=== PATIENT | male | born 1940 ===

== ENCOUNTER 2024-05-03 22:27 | Inpatient (IN) | payer MEDICARE, OTHER, SELFPAY ==
[2024-05-03] VITALS (27 sets, daily range): BP systolic 50–156; BP diastolic 24–123; BMI 31.7; BMI 30.4
--- NOTE | 2024-05-03 18:45 | ED.GENMED ---
History of Present Illness
<Simon Mendosa DO - Last Filed: 05/03/24 21:25>
General
Chief Complaint: Abdominal Pain
Time Seen by Provider: 05/03/24 18:23
<ORESTES Serrano - Last Filed: 05/03/24 23:08>
History of Present Illness
History of Present Illness:
Patient is an 83 year old male with a PMH of CHF and bowel obstruction presenting to the ED with severe abdominal pain. He was short of breath and placed on a nonrebreather.
Review of Systems
<ORESTES Serrano - Last Filed: 05/03/24 23:08>
Review of Systems
Respiratory: Reports trouble breathing
ABD/GI: Reports abdominal pain
Phy Exam
<ORESTES Serrano - Last Filed: 05/03/24 23:08>
Physical Exam
Physical Exam:
see ed note
Course
<Simon Mendosa DO - Last Filed: 05/03/24 21:25>
Orders/Labs/Results
Orders:
Orders
05/03/24 Breakfast
NPO
Allow oral meds: No
Allow clear liquids: No
05/03/24 09:20
Complete Blood Count/With Diff Routine
05/03/24 18:24
Cardiac Monitoring- Treatment ONCE
Urinalysis Reflex To Culture Urgent
05/03/24 18:25
Electrocardiogram (*1) Stat
Reason for Study: Abdominal Pain
CT Abd/pel Without Iv Or Oral Urgent
Reason For Exam: Abdominal pain with distention
EKG- Treatment ONCE
05/03/24 18:32
Complete Blood Count/With Diff Urgent
Comprehensive Metabolic Panel Urgent
Lactic Acid Q4H
Comment: CANCEL 2nd LACTIC ACID IF 1st LACTIC ACID IS LESS THAN 2
Lipase Urgent
PTT Urgent
Prothrombin Time Urgent
Troponin I Urgent
Blood Culture Urgent
LINDSAY Source: Blood/Venous
Specimen Description:
05/03/24 18:56
CR Abdomen - 1 View Urgent
Comment:
Reason For Exam: abd distention
05/03/24 20:53
Blood Culture Urgent
LINDSAY Source: Blood/Venous
Specimen Description:
05/03/24 21:38
Admit/Transfer Patient As Directed
Co-Sign Provider:
Level of Care: Inpatient admission
Assign to:: ICU
Physician / Group: Hema
Diagnosis: SBO, Lactic Acidosis
Reason for Hospitalization: SBO, Lactic Acidosis
Expected length of stay greater than two midnights?: Yes
ELOS- Estimated Length of Stay in days: 4
I certify the patient meets the requirements for IP care: Yes
PRN Pain Medication Management As Directed
May give lesser potent ordered pain med per pt: Yes
preference::
Protocol:: Medication orders for pain may be administered in a
manner that supports deferring to patient preference
when the pt is:
- Requesting an ordered lesser potent pain medication.
Least to most potent pain medications are defined
as: acetaminophen < NSAID < tramadol < opioids
(morphine, oxycodone, hydromorphone).
- Requesting a lesser dose of the same medication IF
ORDERED.
- Requesting a less intrusive route of administration
if both routes are prescribed by the provider (PO <
IV).
05/03/24 21:39
Code Status As Directed
Resuscitation Status: Full Code
05/03/24 21:46
0.9% Sodium Chloride 1000 ml [Nss] 1,000 ml IV BOLUS
05/03/24 22:52
Lactic Acid Q6H
Troponin I Q6H
0.9% Sodium Chloride 1000 ml [Nss] 1,000 ml IV 125 mls/hr
HYDROmorphone [Dilaudid] 0.5 mg IV Q4HPRN PRN
Ondansetron Injectable [Zofran] 4 mg IV Q6HPRN PRN
05/03/24 22:52
SURGICAL CONSULT Routine
Consulting Provider: Clement Lopez
Was physician already notified: Yes
Reason for consult: SBO
Activity As Directed
Activity Level: Bedrest
EKG with chest pain [ECG as needed] As Directed
ECG as needed for:: Chest Pain
Gastrointestinal Tubes As Directed
Type: [place] sump
To suction?: Yes
Type of suction: Low intermittent
Irrigate tube?: Yes
Irrigant: Tap Water
Frequency: Q4H
Amount in mls: 30
Irrigation Directions: Irrigate Q4H and PRN
I/O [Intake/ Output] As Directed
Frequency: Per unit guidelines
Pneumatic Compression Sleeves As Directed
Type: Knee high
Vital Signs As Directed
Frequency: Per unit guidelines
Oxygen Therapy [O2 Therapy] [RESP] Routine
Titrate/Wean O2 to maintain O2 sat greater than (%): 94
DX Deep Vein Thrombosis Video Routine
05/03/24 23:30
Lactic Acid Q4H
Comment: CANCEL 2nd LACTIC ACID IF 1st LACTIC ACID IS LESS THAN 2
05/04/24 00:00
Metoprolol [Lopressor] 2.5 mg IV Q6
05/04/24 04:52
Lactic Acid Q6H
Troponin I Q6H
05/04/24 06:00
Basic Metabolic Panel IN AM
Complete Blood Count/No Diff IN AM
Magnesium IN AM
Phosphorus IN AM
05/04/24 08:00
Pantoprazole [Protonix IV] 40 mg IV DAILY
05/04/24 10:52
Lactic Acid Q6H
Troponin I Q6H
Abnormal Lab Results
05/03/24 05/03/24
09:20 18:32
WBC 13.2 H 10^3/uL 13.1 H 10^3/uL
(4.8-10.8) (4.8-10.8)
RDW 15.5 H % 15.5 H %
(11.5-14.5) (11.5-14.5)
Abs Immat Gran (auto) 0.2 H 10^3/uL 0.3 H 10^3/uL
(0-0.05) (0-0.05)
Absolute Neuts (auto) 9.9 H 10^3/uL 9.4 H 10^3/uL
(1.4-6.5) (1.4-6.5)
Absolute Lymphs (auto) 0.9 L 10^3/uL
(1.2-3.4)
Absolute Monos (auto) 2.1 H 10^3/uL 1.7 H 10^3/uL
(0.1-0.6) (0.1-0.6)
Immature Gran % 1.4 H % 2.2 H %
(0-0.5) (0-0.5)
Lymphocytes % 6.8 L % 12.4 L %
(20.5-51.1) (20.5-51.1)
Monocytes % 16.2 H % 13.1 H %
(1.7-9.3) (1.7-9.3)
PT 23.5 H Sec
(11.4-14.6)
APTT 42.4 H Sec
(23.4-35.0)
Sodium 133 L mmol/L
(135-145)
Potassium 5.5 H mmol/L
(3.5-5.1)
Carbon Dioxide 11 L* mmol/L
(22-30)
BUN 94 H mg/dl
(9-20)
Creatinine 2.6 H mg/dL
(0.7-1.3)
Glucose 118 H mg/dl
(70-99)
Lactic Acid 4.5 H* mmol/L
(0.7-2.0)
Total Bilirubin 1.8 H mg/dl
(0.2-1.3)
Troponin I 0.100 H* ng/ml
05/03/24 18:32
05/03/24 18:32
Vital Signs
Initial and Last Documented VS:
Initial Vital Signs
Pulse Ox
95
05/03/24 18:20
Last Documented Vital Signs
Temp Pulse Resp BP Pulse Ox
98.0 F 137 39 65/34 92
05/03/24 18:22 05/03/24 23:00 05/03/24 23:00 05/03/24 23:00 05/03/24 23:00
<ORESTES Serrano - Last Filed: 05/03/24 23:08>
Orders/Labs/Results
Orders:
Orders
05/03/24 Breakfast
NPO
Allow oral meds: No
Allow clear liquids: No
05/03/24 09:20
Complete Blood Count/With Diff Routine
05/03/24 18:24
Cardiac Monitoring- Treatment ONCE
Urinalysis Reflex To Culture Urgent
05/03/24 18:25
Electrocardiogram (*1) Stat
Reason for Study: Abdominal Pain
CT Abd/pel Without Iv Or Oral Urgent
Reason For Exam: Abdominal pain with distention
EKG- Treatment ONCE
05/03/24 18:32
Complete Blood Count/With Diff Urgent
Comprehensive Metabolic Panel Urgent
Lactic Acid Q4H
Comment: CANCEL 2nd LACTIC ACID IF 1st LACTIC ACID IS LESS THAN 2
Lipase Urgent
PTT Urgent
Prothrombin Time Urgent
Troponin I Urgent
Blood Culture Urgent
LINDSAY Source: Blood/Venous
Specimen Description:
05/03/24 18:56
CR Abdomen - 1 View Urgent
Comment:
Reason For Exam: abd distention
05/03/24 20:53
Blood Culture Urgent
LINDSAY Source: Blood/Venous
Specimen Description:
05/03/24 21:38
Admit/Transfer Patient As Directed
Co-Sign Provider:
Level of Care: Inpatient admission
Assign to:: ICU
Physician / Group: Hema
Diagnosis: SBO, Lactic Acidosis
Reason for Hospitalization: SBO, Lactic Acidosis
Expected length of stay greater than two midnights?: Yes
ELOS- Estimated Length of Stay in days: 4
I certify the patient meets the requirements for IP care: Yes
PRN Pain Medication Management As Directed
May give lesser potent ordered pain med per pt: Yes
preference::
Protocol:: Medication orders for pain may be administered in a
manner that supports deferring to patient preference
when the pt is:
- Requesting an ordered lesser potent pain medication.
Least to most potent pain medications are defined
as: acetaminophen < NSAID < tramadol < opioids
(morphine, oxycodone, hydromorphone).
- Requesting a lesser dose of the same medication IF
ORDERED.
- Requesting a less intrusive route of administration
if both routes are prescribed by the provider (PO <
IV).
05/03/24 21:39
Code Status As Directed
Resuscitation Status: Full Code
05/03/24 21:46
0.9% Sodium Chloride 1000 ml [Nss] 1,000 ml IV BOLUS
10/05/24 22:52
Lactic Acid Q6H
Troponin I Q6H
0.9% Sodium Chloride 1000 ml [Nss] 1,000 ml IV 125 mls/hr
HYDROmorphone [Dilaudid] 0.5 mg IV Q4HPRN PRN
Ondansetron Injectable [Zofran] 4 mg IV Q6HPRN PRN
05/03/24 22:52
SURGICAL CONSULT Routine
Consulting Provider: Clement Lopez
Was physician already notified: Yes
Reason for consult: SBO
Activity As Directed
Activity Level: Bedrest
EKG with chest pain [ECG as needed] As Directed
ECG as needed for:: Chest Pain
Gastrointestinal Tubes As Directed
Type: [place] sump
To suction?: Yes
Type of suction: Low intermittent
Irrigate tube?: Yes
Irrigant: Tap Water
Frequency: Q4H
Amount in mls: 30
Irrigation Directions: Irrigate Q4H and PRN
I/O [Intake/ Output] As Directed
Frequency: Per unit guidelines
Pneumatic Compression Sleeves As Directed
Type: Knee high
Vital Signs As Directed
Frequency: Per unit guidelines
Oxygen Therapy [O2 Therapy] [RESP] Routine
Titrate/Wean O2 to maintain O2 sat greater than (%): 94
DX Deep Vein Thrombosis Video Routine
05/03/24 23:30
Lactic Acid Q4H
Comment: CANCEL 2nd LACTIC ACID IF 1st LACTIC ACID IS LESS THAN 2
05/04/24 00:00
Metoprolol [Lopressor] 2.5 mg IV Q6
05/04/24 04:52
Lactic Acid Q6H
Troponin I Q6H
05/04/24 06:00
Basic Metabolic Panel IN AM
Complete Blood Count/No Diff IN AM
Magnesium IN AM
Phosphorus IN AM
05/04/24 08:00
Pantoprazole [Protonix IV] 40 mg IV DAILY
05/04/24 10:52
Lactic Acid Q6H
Troponin I Q6H
Abnormal Lab Results
05/03/24 05/03/24
09:20 18:32
WBC 13.2 H 10^3/uL 13.1 H 10^3/uL
(4.8-10.8) (4.8-10.8)
RDW 15.5 H % 15.5 H %
(11.5-14.5) (11.5-14.5)
Abs Immat Gran (auto) 0.2 H 10^3/uL 0.3 H 10^3/uL
(0-0.05) (0-0.05)
Absolute Neuts (auto) 9.9 H 10^3/uL 9.4 H 10^3/uL
(1.4-6.5) (1.4-6.5)
Absolute Lymphs (auto) 0.9 L 10^3/uL
(1.2-3.4)
Absolute Monos (auto) 2.1 H 10^3/uL 1.7 H 10^3/uL
(0.1-0.6) (0.1-0.6)
Immature Gran % 1.4 H % 2.2 H %
(0-0.5) (0-0.5)
Lymphocytes % 6.8 L % 12.4 L %
(20.5-51.1) (20.5-51.1)
Monocytes % 16.2 H % 13.1 H %
(1.7-9.3) (1.7-9.3)
PT 23.5 H Sec
(11.4-14.6)
APTT 42.4 H Sec
(23.4-35.0)
Sodium 133 L mmol/L
(135-145)
Potassium 5.5 H mmol/L
(3.5-5.1)
Carbon Dioxide 11 L* mmol/L
(22-30)
BUN 94 H mg/dl
(9-20)
Creatinine 2.6 H mg/dL
(0.7-1.3)
Glucose 118 H mg/dl
(70-99)
Lactic Acid 4.5 H* mmol/L
(0.7-2.0)
Total Bilirubin 1.8 H mg/dl
(0.2-1.3)
Troponin I 0.100 H* ng/ml
05/03/24 18:32
05/03/24 18:32
Vital Signs
Initial and Last Documented VS:
Initial Vital Signs
Pulse Ox
95
05/03/24 18:20
Last Documented Vital Signs
Temp Pulse Resp BP Pulse Ox
98.0 F 137 39 65/34 92
05/03/24 18:22 05/03/24 23:00 05/03/24 23:00 05/03/24 23:00 05/03/24 23:00
<DO Devon Jones Last Filed: 05/03/24 21:25>
*Critical Care Note
Total Time (30-74mins, 75-104mins- exclusive of procedures): 60 (Critical care statement: A total of 60 minutes of critical care time was provided for this patient. This time is separate from time utilized to perform the aforementioned documented
procedures. Aggregate critical care time includes only time during which I was engaged in work directl)
Data Reviewed
Review of Other/Old Records Reveals: Labs, Records, Radiology Studies, Testing and Discharge Summary
Source: patient and family
<DO Devon Jones Last Filed: 05/03/24 21:25>
Patient Management
Social determinants of health affecting care: Living situation and Strong social support
Discussion with other providers: Hospitalist and Tree Trimmer (Dr Lopez)
<Simon Mendsoa, DO - Last Filed: 05/03/24 21:25>
Update Note
Update Note:
05/03/20241944 PM attempted to call the number of the primary contact [phone]. No answer. No answering machine. There is no name on this contact.
Will attempt to call Wellington Sanchez to get a contact number of next of kin.
Christiano Sanchez Gave us daughters contact info:
Moriah [phone]- Message Left
Erin [id number] will attempt to determine patient's advanced directive and get back to us. She will talk to patient's who is also a resident at [facility]
05/03/20242023 PM: Spoke with Moriah who is one of his power's of commercial litigation attorney. As of right now he is CPR only. Patient does not want intubation. She will contact the other power of commercial litigation attorney and determine the extent of his advance directive and get
back to us.
05/03/20242024 PM: Contacted general surgery. He is actively in the operating room and will see the patient as soon as he is clear.
ED Attending Note
<Simon Mendosa, DO - Last Filed: 05/03/24 21:25>
ED Attending Note
Patient seen and examined by attending physician: Yes
I performed the substantive portion of visit, reviewed & personally made and approve the management plan that is documented in note by myself or BIRD.: Yes
ED Attending Note:
83-year-old male brought in by EMS for abdominal distention. Patient states that he has had abdominal pain since yesterday but today became very severe. Patient developed some shortness of breath with rhonchi and tachycardia. He does have a
history of congestive heart failure.He does have a history of abdominal hernia. History is limited secondary to patient's condition. We are attempting to contact Wellington Sanchez
Vital signs are stable. Patient not hypoxic
Nursing note reviewed. I agree with nursing documentation up to this point in time.
Home Meds and allergies reviewed.
NUMBER AND COMPLEXITY OF PROBLEMS ADDRESSED AT THE ENCOUNTER
� Chronic conditions affecting care: CHF
� Acute Exacerbation and/or Progression of Chronic Illness: Abdominal hernia. hernia
� Differential Diagnosis includes:
AMOUNT AND/OR COMPLEXITY OF DATA TO BE REVIEWED AND ANALYZED
I performed an independent evaluation of the following and my interpretation is:
EKG:
Pulse Ox: Not Hypoxic
Dietary Cook: Sinus Rhythm
CT:
X-rays:
Ultrasound:
Laboratory Studies:
Other:
Review of other/old records:
Clinical information was obtained by an independent historian:
Prescriptions/Medications Considered but not given:
Further testing considered but not performed:
RISK OF COMPLICATIONS AND/OR MORBIDITY OR MORTALITY OF PATIENT MANAGEMENT
Social determinants of health affecting care: Good Social Support
Discussion with other providers:
Escalation of care including admission/observation vs risk of discharge considered: After being observed in the emergency department, patient is stable for discharge.
CRITICAL CARE NOTE:
Total Time (exclusive of procedures):
Update:
<ORESTES Serrano - Last Filed: 05/03/24 23:08>
-
Portions of this chart may have been created with voice recognition software.� Occasional wrong word or��sound alike� substitutions may have occurred due to the inherent limitations of voice recognition software.
Discharge Plan
Departure
Patient Disposition: Admit
Date of Disposition: 05/03/24
Time of Disposition: 21:24
Admit to: ICU
Presentation/result/management discussed w/ accepting MD/DO: Hospitalist
Condition: Critical
Discharge Problem:
SBO (small bowel obstruction), Sepsis, Atrial fibrillation, Dementia
Interventions
Interventions:
*Risk Screen - Suicide Last Done: 05/03/24 18:30
*General Assessment Last Done: 05/03/24 18:30
*Neglect/Abuse Screening Last Done: 05/03/24 18:30
*ED COVID-19 Vaccine History Last Done: 05/03/24 18:30
*Nursing Disposition Last Done: 05/03/24 22:25
[facility] Assessment Last Done: 05/03/24 18:30
Discharge Date and Time
Discharge Date/Time: 05/03/24 22:25
[2024-05-03 18:52] LABS: INR 2.11; PT 23.5 Sec (11.4-14.6)
[2024-05-03 18:53] LABS: APTT 42.4 Sec (23.4-35.0)
[2024-05-03 18:54] LABS: Lactic Acid 4.5 mmol/L (0.7-2.0)
[2024-05-03 18:59] LABS: % Basophils 0.6 % (0-2); % Eosinophils 0.1 % (0-6); % Immature Granulocytes 2.2 % (0-0.5); % Lymphocytes 12.4 % (20.5-51.1); % Monocytes 13.1 % (1.7-9.3); % Neutrophils 71.6 % (42.2-75.2); Absolute Basophils 0.1 10^3/uL (0-0.2); Absolute Immature Granulocytes 0.3 10^3/uL (0-0.05); Absolute Lymphocytes 1.6 10^3/uL (1.2-3.4); Absolute Monocytes 1.7 10^3/uL (0.1-0.6); Absolute Neutrophils 9.4 10^3/uL (1.4-6.5); Hematocrit 45.1 % (39.0-52.0); Hemoglobin 15.2 g/dL (13.0-18.0); Mean Corp Hgb Conc. 33.7 g/dL (33.0-37.0); Mean Corpuscular Hgb 30.2 pg (27.0-31.0); Mean Corpuscular Volume 89.7 fL (80.0-94.0); Mean Platelet Volume 9.5 fL (7.4-10.4); Nucleated Red Blood Cells % 0 % (-); Platelet Count 280 10^3/uL (130-400); Red Blood Cell Count 5.03 10^6/uL (4.70-6.10); Red Cell Dist. Width 15.5 % (11.5-14.5); White Blood Cell Count 13.1 10^3/uL (4.8-10.8)
[2024-05-03 19:09] LABS: ALT (SGPT) 18 U/L (0-50); AST (SGOT) 22 U/L (17-59); Albumin 3.9 g/dl (3.5-5.0); Alkaline Phosphatase 110 U/L (38-126); Blood Urea Nitrogen 94 mg/dl (9-20); Calcium 9.5 mg/dl (8.4-10.2); Carbon Dioxide 11 mmol/L (22-30); Chloride 99 mmol/L (98-107); Glucose 118 mg/dl (70-99); Lipase 30 U/L (23-300); Potassium 5.5 mmol/L (3.5-5.1); Sodium 133 mmol/L (135-145); Total Bilirubin 1.8 mg/dl (0.2-1.3); Total Protein 7.1 g/dl (6.3-8.2)
[2024-05-03 19:19] LABS: % Basophils 0.5 % (0-2); % Eosinophils 0.1 % (0-6); % Immature Granulocytes 1.4 % (0-0.5); % Lymphocytes 6.8 % (20.5-51.1); % Monocytes 16.2 % (1.7-9.3); Absolute Basophils 0.1 10^3/uL (0-0.2); Absolute Immature Granulocytes 0.2 10^3/uL (0-0.05); Absolute Lymphocytes 0.9 10^3/uL (1.2-3.4); Absolute Monocytes 2.1 10^3/uL (0.1-0.6); Absolute Neutrophils 9.9 10^3/uL (1.4-6.5); Hematocrit 43.7 % (39.0-52.0); Mean Corp Hgb Conc. 34.3 g/dL (33.0-37.0); Mean Corpuscular Hgb 30.5 pg (27.0-31.0); Mean Corpuscular Volume 88.8 fL (80.0-94.0); Mean Platelet Volume 10.2 fL (7.4-10.4); Nucleated Red Blood Cells % 0 % (-); Platelet Count 265 10^3/uL (130-400); Red Blood Cell Count 4.92 10^6/uL (4.70-6.10); Red Cell Dist. Width 15.5 % (11.5-14.5); White Blood Cell Count 13.2 10^3/uL (4.8-10.8)
[2024-05-03 19:26] LABS: eGFR 23.43
--- NOTE | 2024-05-03 21:48 | HPS.HSE ---
Family Physician
-
Family Physician: Jose Gannon DO
Chief Complaint
-
Abd Pain, N/V
History of Present Illness
Patient is an 83y M with PMH significant for A-Fib, senile dementia and GBS who presents to ED complaining of abdominal pain and N/V. History obtained from patient, NH record and discussion with daughter via phone. Patient was noted to have N/V
x 2 episodes a few days ago. He was then tolerating liquid diet until today when he complained of mid-abdominal pain, had additional N/V and was noted to have a 'bulge' in the lower abdomen. Patient was sent to the ED for further evaluation and
treatment.
In the ED, patient was in acute distress with abdominal pain and distention. NGT was placed and has drained about 3 liters thus far of dark material.
Patient complains of lower abdominal pain, but notes that he feels much improved from initial arrival.
Medical History
Past Medical History
Past Medical History: Reports Other
Additional Past Medical History:
Atrial Fibrillation - Unknown Type
'CHF' - Unspecified
History of RLE DVT
Guillain-Allison Syndrome
SAMPSON
Dementia with Behavioral Disturbance
CKD III
History of Renal Cell Carcinoma
Past Surgical History: Reports Other
Additional Past Surgical History:
Left Nephrectomy
Small Bowel Obstruction / ExLap / Hernia Repair (about 30 years ago)
Social History
Tobacco: Former Smoker
Alcohol: None
Drug: None
Living: Snf
Family History
Family History: Not pertinent
Allergies / Home Medications
Allergies reflects when Allergies were last updated in [employer].
Home Medications with original date entered in [employer]
Allergy/Medication List:
Allergies
Allergy/AdvReac Type Severity Reaction Status Date / Time
propoxyphene [From Darvon] Allergy Severe Unknown Verified 05/03/24 19:33
vancomycin Allergy Severe Anaphylaxis Verified 05/03/24 19:33
Penicillins Allergy Unknown Unknown Verified 05/03/24 19:33
Home Medications
acetaminophen 325 mg tablet 650 mg PO Q4H PRN Mild pain / fever > 100.4 05/03/24
apixaban 5 mg tablet 5 mg PO BID 05/03/24
bisacodyl 10 mg rectal suppository 10 mg NJ DAILY PRN constipation 05/03/24
cholecalciferol (vitamin D3) 1,250 mcg (50,000 unit) tablet 1,250 mcg PO QMONTH 05/03/24
famotidine 20 mg tablet 20 mg PO DAILY 05/03/24
ipratropium 0.5 mg-albuterol 3 mg (2.5 mg base)/3 mL nebulization soln 3 ml inhalation Q6H PRN SOB 05/03/24
magnesium hydroxide 400 mg/5 mL oral suspension 30 ml PO HS PRN Constipation 05/03/24
metoprolol succinate 25 mg tablet,extended release 24 hr 12.5 mg PO DAILY 05/03/24
potassium chloride 10 mEq oral packet 20 meq PO DAILY 05/03/24
Review of Systems
-
History Source: Patient
A 12 point ROS was completed and negative except as noted: Yes
Constitutional: Denies Fever or Chills
Cardiac: Denies Chest Pain or Palpitations
Abdomen/GI: Reports Abdominal Pain, Nausea and Vomiting
Neurological: Denies Dizzy or Headache
Psych: Reports Dementia
Physical Exam
Vital Signs
Vital Signs
Temp Pulse Resp BP Pulse Ox
98.0 F 129 39 79/67 96
05/03/24 18:22 05/03/24 21:16 05/03/24 21:16 05/03/24 21:16 05/03/24 21:16
Physical Exam
General: Other (83y M in moderate distress due to abdominal pain and nausea.)
HEENT: Other (Dry MM. NGT in place draining dark liquid.)
Respiratory: Other (Decreased at bases - otherwise clear.)
Cardiac: S1/S2, Irregular Rhythm and Tachycardia; No Murmur
GI: Other (Abdomen is distended with pos BS. Tenderness / hernia appreciated superior to umbilicus, at prior incision site.)
Musculoskeletal: No Clubbing, No Cyanosis and No Edema
Neuro: Awake and Alert; No Oriented
Laboratory Results
-
05/03/24 18:32
05/03/24 18:32
Laboratory Results
PT 23.5 Sec (11.4-14.6) H 05/03/24:
INR 2.11 05/03/24:
APTT 42.4 Sec (23.4-35.0) H 05/03/24 18:32
Lactic Acid 4.5 mmol/L (0.7-2.0) H* 05/03/24:
Total Bilirubin 1.8 mg/dl (0.2-1.3) H 05/03/24 18:32
AST 22 U/L (17-59) 05/03/24 18:32
ALT 18 U/L (0-50) 05/03/24 18:32
Alkaline Phosphatase 110 U/L (38-126) 05/03/24 18:32
Troponin I 0.100 ng/ml H* 05/03/24 18:32
Lipase 30 U/L (23-300) 05/03/24 18:32
Impression/Plan
-
A/P: Patient is an 83y M with PMH significant for A-Fib, dementia and prior SBO / hernia repair who presents to ED for evaluation of N/V and abdominal pain.
SBO
Ventral / Incisional Hernia
- Admit for further evaluation and treatment.
- NGT placed in the ED with decompression and significant improvement per patient.
- Continue NG drainage and quantify output.
- Supportive care including IVFs, pain control, etc.
- Surgery evaluation appreciated - ? eventual OR for hernia repair / alleviation of obstruction after family discussions, etc.
- Follow for any new / worsening symptoms, increased pain, etc.
Lactic Acidosis
Hyperkalemia
KIMBERLY on CKD
- Patient with significant volume depletion based on physical exam, labs, etc.
- Aggressive IVF resuscitation and follow for improvement in labs / lytes / lactate.
- ? elevated lactate due to ischemic of involved bowel - but no characteristic findings of this seen on imaging.
- SCr = 2.6 with prior baseline around 1.0.
- Follow for improvement with volume replacement.
Atrial Fibrillation - Unknown Type
- A-Fib with rapid rates in the ED.
- Monitor for improvement in rates with volume replacement and pain control.
- IV Lopressor with holding parameters to control rates.
- Monitor on telemetry.
- Hold Eliquis given potential need for intervention / surgery.
History of CHF
- Listed diagnosis on patient record; however, he is on no maintenance diuretics, etc.
- Clearly not volume overloaded at present.
- Monitor I/Os, daily weights, etc.
- Monitor for any development of dyspnea, hypoxemia, etc.
Senile Dementia
- Occasional behaviors / agitation according to family.
- Not on any mood stabilizing medications chronically.
- Monitor for any changes / try non-pharmacologic interventions as able for any agitation.
DVT Prophylaxis: SCDs
Code Status: Full
Long discussion with daughter via phone re: code status, patient wishes, etc.
Initially stated 'CPR' but 'no intubation'. After review and explanation, daughter clarifies that patient would wish for initial resuscitation efforts - including intubation - but would not wish to remain on 'life support'.
That said, family having active discussions re: current clinical presentation, need for surgery, etc and may wish to transition to a comfort care approach if they decide to decline surgery.
Continue to follow-up / readdress changing goals of care.
[2024-05-03] MEDS: NSS 1000 IV ×4 (21:51→23:41)
--- NOTE | 2024-05-03 22:53 | W.PN.UPDATE ---
Update Note
Progress Note Update
The patient was seen and examined and reviewed the medical record and imaging studies.� Full consult to follow.
83-year-old [facility] with multiple medical problems including A-fib on anticoagulation, history Guillain-Pham� syndrome, history of DVT, CKD III, renal cancer status post left nephrectomy, and a history of a bowel
obstruction in the past who presents to the ED with nausea and vomiting for the past several days.� While in the ED he was hypotensive but afebrile and was noted to have a massively distended abdomen with tympany.� An NG tube was placed with
drainage of approximately 3 liters of feculent material.� At the present time his abdomen is much softer and he states he feels better.� After speaking with his daughter via telephone (Moriah, his power of civil rights attorney at [phone]), he underwent
some kind of operation approximately 30 years ago when he hospitalized with Guillain-Pham� syndrome and she believes there was some type of bowel obstruction.� He has a known ventral hernia and opted not to have it treated.
His white count is 13.1 his hemoglobin 15.2 g/dL.� His sodium is 133 with potassium 5.5.� His carbon dioxide is 11, BUN 94 and creatinine 2.6.� In June 2023 his creatinine was 1.� In the ED his lactate was 4.[address] scan of the abdomen and
pelvis without contrast is consistent with a small bowel obstruction with a transition point in the midline supraumbilical ventral abdominal wall hernia.� There is no pneumatosis and minimal fluid.� There are also gallstones and bilateral pleural
effusions.� On exam his abdomen is soft, slightly distended, has a midline incision with some erythema. �It is nontender and I am unable to reduce the hernia.
I discussed the case with his daughter and reviewed the treatment options.� Without surgery, his condition is unlikely to improve.� I explained that the surgery is high risk given his underlying medical conditions.� The operation would involve
general anesthesia with an incision over the previous hernia site, possible bowel resection.� The hernia will be repaired but mesh may not be used depending upon the findings.� She is on her way to the hospital to see her father and discussed goals
of care.� At the present time he still needs to be resuscitated before any surgery and if they like to proceed, I will order Kcentra.� The plan is to monitor him in the intensive care unit.
[2024-05-03] MEDS: NEO-SYNEPHRINE 250 IV (23:05)
[2024-05-03] MEDS: ZOFRAN 4 MG IV (23:11)
--- NOTE | 2024-05-03 23:43 | W.PN.UPDATE ---
Update Note
Progress Note Update
05/03/24
2335- Daughter Moriah at patient's bedside. Updated on current clinical situation and plan of care. Patient continuing to have large NGT output and now vomiting, concern for aspiration pneumonia. Patient is in rapid afib HR 160s, hypotensive now
initiated vasopressor sanchez gtt, tachypneic, lower extremities are mottled, and hypoxic with oxygen saturations 90% increased Nasal cannula to non rebreather. Moriah called her sister and openly discussed code status, family consensus he would not
want to be on a ventilator and surgical recovery would be difficult, family made decision to change code status to DNR/DNI. Code status was updated in the chart, 'yes' to vasopressors and would continue with current care. RN updated on code status
change and plan of care. Answered all questions.
[2024-05-03 23:48] LABS: Lactic Acid 3.1 mmol/L (0.7-2.0)
--- NOTE | 2024-05-03 23:51 | W.PN.SEPSIS ---
Sepsis
Vital Signs
Temp Pulse Resp BP Pulse Ox
100.1 F 138 35 106/65 92
05/03/24 23:34 05/03/24 23:15 05/03/24 23:15 05/03/24 23:15 05/03/24 23:15
Physical Exam
Physical Exam:
A focused exam was performed after fluid resuscitation.
Capillary Refill
Bilateral Upper Extremity:
Leonarda Time: Less than 3 sec
Bilateral Lower Extremity:
Leonarda Time: Greater than or equal to 3 sec
Pulse Evaluation
Bilateral Radial:
Pulse Evaluation: Present
Bilateral Dorsalis Pedis:
Pulse Evaluation: Present
[2024-05-03 23:55] LABS: Magnesium 2.2 mg/dl (1.6-2.3); Phosphorus 4.3 mg/dl (2.5-4.5)
[2024-05-04] VITALS (21 sets, daily range): BP systolic 78–147; BP diastolic 39–133; BMI 30.4
[2024-05-04 00:21] LABS: Troponin I 0.123 ng/ml
[2024-05-04 00:24] LABS: Blood Urea Nitrogen 96 mg/dl (9-20); Calcium 7.9 mg/dl (8.4-10.2); Carbon Dioxide 10 mmol/L (22-30); Chloride 106 mmol/L (98-107); Glucose 82 mg/dl (70-99); Potassium 5.6 mmol/L (3.5-5.1); Sodium 134 mmol/L (135-145)
[2024-05-04 00:32] LABS: Estimated Creatinine Clearance 31 ml/min; eGFR 27.15
[2024-05-04] MEDS: SODIUM BICARBONATE 50 MEQ IV ×3 (00:41→05:42)
[2024-05-04] MEDS: SODIUM BICARBONATE 1150 MEQ IV ×2 (01:04→08:49)
[2024-05-04] MEDS: NEO-SYNEPHRINE 250 IV ×2 (04:10→08:48)
[2024-05-04 04:27] LABS: Venous Blood Gas B.E. -10.9 mmol/L (-4 to +4); Venous Blood Gas HCO3 14.6 mmol/L (22-27); Venous Blood Gas O2 Sat % 95.3 %; Venous Blood Gas pCO2 31 mmHg (35-48); Venous Blood Gas pH 7.28 (7.32-7.43); Venous Blood Gas pO2 65 mmHg (30-50)
[2024-05-04 04:38] LABS: Hematocrit 35.3 % (39.0-52.0); Hemoglobin 12.3 g/dL (13.0-18.0); Mean Corp Hgb Conc. 34.8 g/dL (33.0-37.0); Mean Corpuscular Hgb 30.8 pg (27.0-31.0); Mean Corpuscular Volume 88.5 fL (80.0-94.0); Mean Platelet Volume 10.2 fL (7.4-10.4); Platelet Count 229 10^3/uL (130-400); Red Blood Cell Count 3.99 10^6/uL (4.70-6.10); Red Cell Dist. Width 15.6 % (11.5-14.5); White Blood Cell Count 15.9 10^3/uL (4.8-10.8)
--- NOTE | 2024-05-04 04:44 | PTCARENOTE ---
Late note due to pt care. Received pt from ED RN, transferred safely onto ICU bed. Alert and orientedx2. Hx dementia, poor historian. Rapid Afib 150 on the monitor, Hypotensive 60/40 sanchez gtt started, 2L NSS bolus given, followed by sodium bicarb
gtt. Hypooxic 80's, NRB applied, able to transition to 6L NC. Lower extremities cold and mottled, weak pedal pulses. NGT in left nare to LIS, 1.5L of brown bile/stool. Pt also had 2 large liquid incontinent BMs. Dual RN skin check, pt has MASD/dry
skin around penis, and perineum, also has sacral slit, barrier cream applied to all areas. Q2hour turns.
[2024-05-04 04:51] LABS: INR 2.95; PT 30.7 Sec (11.4-14.6)
[2024-05-04 04:52] LABS: APTT 41.3 Sec (23.4-35.0)
[2024-05-04 05:04] LABS: Lactic Acid 3.3 mmol/L (0.7-2.0)
[2024-05-04 05:14] LABS: Blood Urea Nitrogen 101 mg/dl (9-20); Calcium 7.6 mg/dl (8.4-10.2); Carbon Dioxide 12 mmol/L (22-30); Chloride 106 mmol/L (98-107); Glucose 70 mg/dl (70-99); Magnesium 2.1 mg/dl (1.6-2.3); Phosphorus 3.9 mg/dl (2.5-4.5); Sodium 137 mmol/L (135-145)
[2024-05-04 05:25] LABS: Estimated Creatinine Clearance 31 ml/min; Troponin I 0.111 ng/ml; eGFR 27.15
[2024-05-04 06:30] LABS: Troponin I 0.123 ng/ml
[2024-05-04] MEDS: DILAUDID 0.5 MG IV ×3 (07:30→13:04)
--- NOTE | 2024-05-04 07:31 | W.PN.HOSP.TC ---
Today's Communication/Plan
-
Continue supportive measures
Increase Dilaudid frequency
Assessment / Plan
Assessment / Plan
Gen-AAOx3, NAD
HEENT-NC, AT, anicteric, clear oral mm
Neck-supple
CV-reg, no M, +S1/S2
Lungs-clear B/L
Abd-soft, NT, ND
Ext-no edema
Musculoskeletal-no cyanosis, clubbing
Skin-warm and dry
Neuro-grossly non-focal
Psych-calm, cooperative
Sepsis (POA) -likely GI source given presentation with small bowel obstruction. Cultures pending. Chest x-ray without infiltrate, although apices are not visualized. Spoke with daughter at the bedside, I favor not starting antibiotics given his
poor prognosis. She agrees.
Shock -differential diagnosis includes hypovolemic, septic, etc. Vasopressor dependent. Remains hemodynamically unstable in the ICU. Continue Erick-Synephrine. IV fluid support.
SBO -significant NG tube output since admission. Continue NPO. Very high risk for surgery given multiple comorbidities, KIMBERLY, shock.
High anion gap metabolic acidosis -so far refractory to bicarbonate infusion. Prognosis remains poor. Bicarb 12 this morning. Lactic acidosis noted.
Hyponatremia -hypovolemic. Improved.
Hyperkalemia -improved.
KIMBERLY -suspect related to profound volume depletion, small bowel obstruction.
Rapid Atrial Fib -will be difficult to control heart rate given presentation with sepsis, shock, bowel obstruction, pain.
Troponin elevation -suspect type II DE related to shock, sepsis, tachycardia.
Dementia
DNR
Dispo -I favor comfort measures at this point in time given his very poor prognosis. He is not a surgical candidate, nor would he survive with or without surgery. Family agrees. Waiting for arrival of patient's and other family members.
Discussed with nursing. Will increase IV Dilaudid frequency with goal of comfort.
End-of-life care discussion constitutes high risk encounter.
Anticipated Discharge: 24 - 48 hours
Subjective/Interval History
-
Date of Service: May 04, 2024
Patient seen and examined. Complaining of abdominal discomfort, moaning.
Objective Data
-
Labs:
Laboratory Results
05/03/24 05/03/24 05/04/24
23:28 23:40 04:07
WBC 15.9 H
Hgb 12.3 L
Hct 35.3 L
Plt Count 229
PT 30.7 H
INR 2.95
APTT 41.3 H
Sodium 134 L Cancelled 137
Potassium 5.6 H Cancelled 5.0
Chloride 106 Cancelled 106
Carbon Dioxide 10 L* Cancelled 12 L*
BUN 96 H Cancelled 101 H*
Creatinine 2.3 H Cancelled 2.3 H
Glucose 82 Cancelled 70
Calcium 7.9 L D Cancelled 7.6 L
Vital Signs:
Vital Signs
Temp Pulse Resp BP Pulse Ox
101.6 F H 129 37 113/47 93
05/04/24 07:00 05/04/24 05:45 05/04/24 05:45 05/04/24 05:00 05/04/24 05:45
I&O
05/03/24 05/04/24 05/05/24
06:59 06:59 06:59
Intake Total 2145 / 2145
Output Total 1550 / 1550
Balance 595 / 595
Review of Systems
-
History Source: Patient
All other systems: Reviewed and negative
--- NOTE | 2024-05-04 07:36 | CON.INTV ---
Consultation
Consultation Request
Date/Time Consultation Requested: 05/04/24
Date/Time Consultation Performed: 05/04/24
Performing Provider: Jyoti
Reason for Consultation: ICU
Medical History
-
History of Present Illness:
Patient is an 83-year-old male with previous history of A-fib, dementia, GBS, CHF, SAMPSON, CKD with renal cell carcinoma, history of bowel obstruction, ventral hernia presenting to ER with complaints abdominal pain and nausea/vomiting. He was
notably having nausea and vomiting with severe distention of abdomen. In the ER, he was notably hypotensive, in acute distress with abdominal pain and distention. NG tube was placed and drained about 3 L of feculent material. CT demonstrating
small bowel obstruction with transition point at the ventral abdominal wall hernia site. Evaluated by colorectal with recommendation to undergo surgery. He is admitted to ICU for continued care. Patient is currently DNR, family discussion ongoing
regarding goals of care.
.
Past Medical History
Past Medical History: Other (see list below)
Social History
Tobacco: Non-smoker
Alcohol: None
Drug: None
Family History
Family History: Reviewed & Not Pertinent
Allergies / Home Medications
Allergies
Allergy/AdvReac Type Severity Reaction Status Date / Time
propoxyphene [From Darvon] Allergy Severe Unknown Verified 05/03/24 19:33
vancomycin Allergy Severe Anaphylaxis Verified 05/03/24 19:33
Penicillins Allergy Unknown Unknown Verified 05/03/24 19:33
Home Medications
�Medication �Instructions �Recorded �Confirmed �Last Taken �Type
acetaminophen 325 mg tablet 650 mg PO Q4H PRN Mild pain / 05/03/24 05/03/24 Unknown History
fever > 100.4
apixaban 5 mg tablet 5 mg PO BID 05/03/24 05/03/24 Unknown History
bisacodyl 10 mg rectal suppository 10 mg [place] DAILY PRN constipation 05/03/24 05/03/24 Unknown History
cholecalciferol (vitamin D3) 1,250 1,250 mcg PO QMONTH 05/03/24 05/03/24 Unknown History
mcg (50,000 unit) tablet
famotidine 20 mg tablet 20 mg PO DAILY 05/03/24 05/03/24 Unknown History
ipratropium 0.5 mg-albuterol 3 mg 3 ml inhalation Q6H PRN SOB 05/03/24 05/03/24 Unknown History
(2.5 mg base)/3 mL nebulization
soln
magnesium hydroxide 400 mg/5 mL 30 ml PO HS PRN Constipation 05/03/24 05/03/24 Unknown History
oral suspension
metoprolol succinate 25 mg 12.5 mg PO DAILY 05/03/24 05/03/24 Unknown History
tablet,extended release 24 hr
potassium chloride 10 mEq oral 20 meq PO DAILY 05/03/24 05/03/24 Unknown History
packet
Review of Systems
-
Unable to Obtain full review of systems at this time due to: Acuity
History Source: Family
Vitals / Labs / Diagnostic Testing
Vital Signs
Temp Pulse Resp BP Pulse Ox
101.6 F H 129 37 113/47 93
05/04/24 07:00 05/04/24 05:45 05/04/24 05:45 05/04/24 05:00 05/04/24 05:45
Lab Data
05/04/24 04:07
05/04/24 04:07
Laboratory Results
05/03/24 05/04/24
18:32 04:07
PT 23.5 H 30.7 H
INR 2.11 2.95
APTT 42.4 H 41.3 H
Diagnostic Testing:
Physical Exam
-
HEENT: Normocephalic, Anicteric, Moist Mucous Membranes and Other (NGT in place)
Cardiovascular: S1/S2 and Regular Rhythm
Respiratory: Clear and Non-Labored Respirations
GI: Soft and Distended
Neurology: Awake and Other (lethargic but arousable)
Skin: Warm and Dry
General: Pain and Poor Appetite
Assessment
-
Patient is an 83-year-old male with previous history of A-fib, dementia, GBS, CHF, SAMPSON, CKD with renal cell carcinoma, history of bowel obstruction, ventral hernia presenting to ER with complaints abdominal pain and nausea/vomiting. He was
notably having nausea and vomiting with severe distention of abdomen. In the ER, he was notably hypotensive, in acute distress with abdominal pain and distention. NG tube was placed and drained about 3 L of feculent material. CT demonstrating
small bowel obstruction with transition point at the ventral abdominal wall hernia site. Evaluated by colorectal with recommendation to undergo surgery. He is admitted to ICU for continued care.
Septic shock on pressors
Small bowel obstruction at site of ventral hernia status post NG tube with 3 L decompression of feculent material
Abdominal pain, nausea/vomiting
Fever
Leukocytosis
Anemia, likely due to acute illness and resuscitation
Severe metabolic acidosis
Acute kidney injury
Lactic acidosis
Hypocalcemia
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
Atrial Fibrillation
CHF
History of RLE DVT
Guillain-[place] Syndrome
SAMPSON
Dementia with Behavioral Disturbance
CKD III
History of Renal Cell Carcinoma
Left Nephrectomy
Small Bowel Obstruction / ExLap / Hernia Repair (about 30 years ago)
Former smoker
Plan
Dementia at baseline
Abd pain ongoing
Pain/sedation: dilaudid PRN
RASS goals: 0
Hemodynamically unstable, requiring pressors.
Requiring pressors:
Cardiac history reviewed--Afib, CHF
No prior ECHO for review, unknown EF
Hold home meds while hypotensive
Monitor on telemetry
Oxygen needs: stable on midflow as needed
Prior history of lung disease: none but was a former smoker, has SAMPSON likely not on PAP
Supplemental O2 as indicated to maintain sats > 89%
CXR/CT reviewed indicating clear lungs
Acute SBO
NPO, NGT in place
CRC evaluated patient, family has declined surgery
Aspiration precautions, HOB > 30 degrees
KIMBERLY present
History of RCC s/p nephrectomy
Void trials
Follow urine output, critical I/Os
Replete electrolytes as needed
Fever and increased WBC on presentation
Started on empiric antibiotics
Follow fever trend, WBC count
Lactate elevated on admission, likely from SBO
CBC reviewed, Hb drop likely dilutional but overall stable
DVT prophylaxis as assessed based on risk, including mechanical SCDs
Can transfuse if indicated for Hb <7, plt < 10
INR WNL
No prior h/o diabetes or thyroid disease
Monitor accuchecks PRN/SS coverage if needed
Family has decided patient is DNR and decline surgery. They are moving into comfort measures and are awaiting more family to come.
They will likely w/d care once they are all present.
Reviewed with CCRN. Orders are placed.
Diagnostic Data
Chest X-Ray: 05/03/24- The enteric tube extends into the stomach with the tip projecting over the region of the gastric antrum. The bilateral lung bases are clear. The lung apices are excluded from the [id number]. The cardiomediastinal silhouette
is normal.
CT Scan: AP 05/03/24- 1. Small bowel obstruction with transition point at the midline supraumbilical ventral abdominal wall hernia.
2. Cholelithiasis.
3. Small bilateral pleural effusions and prominent dependent bilateral lower lobe atelectasis. Cannot rule out superimposed pneumonia.
Echo:
PFT's:
Reports and relevant images were personally reviewed.
-----
Critical care time 75 mins -- this includes review of history, physical exam, medications, hemodynamic/ventilator parameters, laboratory data, imaging and discussion with house staff, pharmacy, respiratory therapy, assistant tennis professional, and nursing.
[2024-05-04] MEDS: PROTONIX IV 40 MG IV (07:57)
--- NOTE | 2024-05-04 08:30 | PTCARENOTE ---
recd pt handoff bedside, family present. assessment as documented. Seen by Jyoti Campbell, John. goals of care discussion with family, to proceed toward comfort care, pain med order adjusted as noted. will continue pressors and fluids for
now, no labs per MD and family. NG irrigated, very fecund odor, incont, also foul. abd tender, hypo/absent bowel sounds. attends changed, incont dark gurwinder. few ice chips for comfort. blankets removed for temp at this time. questions answered
as able, family expecting more to arrive throughout the day.
[2024-05-04] MEDS: DESENEX/MITRAZOL/ZEASORB 1 APPLIC TOPICAL (11:21)
--- NOTE | 2024-05-04 12:21 | CON.GS ---
Consultation
-
Date/Time Consultation Requested: 05/03/2024, 22:00
Date/Time Consultation Performed: 05/03/2024, 22:53
Requesting Provider: Constantino Garrido DO
Performing Provider: Ishmael Lopez MD
Reason for Consultation: incarcerated hernia
Medical History
-
Chief Complaint: abdominal pain
History of Present Illness:
83-year-old male resident of the [facility] with multiple medical problems including A-fib on anticoagulation, history Guillain-Pham� syndrome, history of DVT, CKD III, renal cancer status post left nephrectomy, and a history of a bowel
obstruction in the past who presents to the ED with nausea and vomiting for the past several days.� While in the ED he was hypotensive but afebrile and was noted to have a massively distended abdomen with tympany.� An NG tube was placed with
drainage of approximately 3 liters of feculent material.� At the present time his abdomen is much softer and he states he feels better.� After speaking with his daughter via telephone (Moriah, his power of privacy attorney at [phone]), he underwent
some kind of operation approximately 30 years ago when he hospitalized with Guillain-Pham� syndrome and she believes there was some type of bowel obstruction.� He has a known ventral hernia and opted not to have it treated.
His white count is 13.1 his hemoglobin 15.2 g/dL.� His sodium is 133 with potassium 5.5.� His carbon dioxide is 11, BUN 94 and creatinine 2.6.� In June 2023 his creatinine was 1.� In the ED his lactate was 4.[address] scan of the abdomen and
pelvis without contrast is consistent with a small bowel obstruction with a transition point in the midline supraumbilical ventral abdominal wall hernia.� There is no pneumatosis and minimal fluid.� There are also gallstones and bilateral pleural
effusions.�
Past Medical History
Past Medical History: Other (Atrial Fibrillation - Unknown Type 'CHF' , Unspecified History of RLE DVT, Guillain-[place] Syndrome, SAMPSON, Dementia with Behavioral Disturbance, CKD III, History of Renal Cell Carcinoma)
Past Surgical History: Other (Left Nephrectomy, Small Bowel Obstruction / ExLap / Hernia Repair (about 30 years ago))
Social History
Tobacco: Non-Smoker
Alcohol: None
Drug: None
Family History
Family History: Reviewed & Not Pertinent
Allergies / Home Medications
Allergy/AdvReac Type Severity Reaction Status Date / Time
propoxyphene [From Darvon] Allergy Severe Unknown Verified 05/03/24 19:33
vancomycin Allergy Severe Anaphylaxis Verified 05/03/24 19:33
Penicillins Allergy Unknown Unknown Verified 05/03/24 19:33
�Medication �Instructions �Recorded �Confirmed �Type
acetaminophen 325 mg tablet 650 mg PO Q4H PRN Mild pain / 05/03/24 05/03/24 History
fever > 100.4
apixaban 5 mg tablet 5 mg PO BID 05/03/24 05/03/24 History
bisacodyl 10 mg rectal suppository 10 mg [place] DAILY PRN constipation 05/03/24 05/03/24 History
cholecalciferol (vitamin D3) 1,250 1,250 mcg PO QMONTH 05/03/24 05/03/24 History
mcg (50,000 unit) tablet
famotidine 20 mg tablet 20 mg PO DAILY 05/03/24 05/03/24 History
ipratropium 0.5 mg-albuterol 3 mg 3 ml inhalation Q6H PRN SOB 05/03/24 05/03/24 History
(2.5 mg base)/3 mL nebulization
soln
magnesium hydroxide 400 mg/5 mL 30 ml PO HS PRN Constipation 05/03/24 05/03/24 History
oral suspension
metoprolol succinate 25 mg 12.5 mg PO DAILY 05/03/24 05/03/24 History
tablet,extended release 24 hr
potassium chloride 10 mEq oral 20 meq PO DAILY 05/03/24 05/03/24 History
packet
Review of Systems
-
Unable to obtain full review of systems at this time due to: Dementia
History Source: Family, Jail and Physician
Abdomen/GI: Abdominal Pain, Nausea and Vomiting
A 10 point review of systems was completed, and was negative except as per HPI.
Physical Exam
Vital Signs
Temp Pulse Resp BP Pulse Ox
100.1 F 160 27 99/61 91
05/04/24 11:00 05/04/24 11:45 05/04/24 11:45 05/04/24 11:00 05/04/24 11:00
05/03/24 05/04/24 05/05/24
06:59 06:59 06:59
Actual Weight 107.5 kg
Body Mass Index (BMI) 30.4
Lab Results
05/04/24 04:07
05/04/24 04:07
WBC 15.9 10^3/uL (4.8-10.8) H 05/04/24 04:07
Hgb 12.3 g/dL (13.0-18.0) L 05/04/24 04:07
Hct 35.3 % (39.0-52.0) L 05/04/24 04:07
Plt Count 229 10^3/uL (130-400) 05/04/24 04:07
Abs Immat Gran (auto) 0.3 10^3/uL (0-0.05) H 05/03/24 18:32
Neutrophils % 71.6 % (42.2-75.2) 05/03/24 18:32
Physical Exam
General: Well Developed and Well Nourished
GI: Soft, Distended (mild) and Other (midline incision with some erythema, unable to reduce hernia)
Skin: Warm and Dry
Data Reviewed
-
CT Scan: Image Personally Visualized and interpreted, Report Reviewed by me and Discussed with Family
Labs: Labs Reviewed by me, Discussed with Physician, Discussed with Patient and Discussed with Family
Old Records: Reviewed
Assessment / Plan
-
Assessment: 83yo male with abdominal pain, found to have an incarcerated ventra hernia
Plan:
Dr. Lopez discussed the case with his daughter and reviewed the treatment options.� Without surgery, his condition is unlikely to improve.� Dr. Lopez explained that the surgery is high risk given his underlying medical conditions.� The operation
would involve general anesthesia with an incision over the previous hernia site, possible bowel resection.� The hernia will be repaired but mesh may not be used depending upon the findings.� She is on her way to the hospital to see her father and
discussed goals of care.� At the present time he still needs to be resuscitated before any surgery and if they like to proceed, Dr. Lopez will order Kcentra.� The plan is to monitor him in the intensive care unit.
--- NOTE | 2024-05-04 12:38 | W.PN.CRS1 ---
Today's Communication / Plan
-
No plans for surgery
Comfort measures once family arrives
Assessment/Plan
-
Assessment: 83yo male with abdominal pain, found to have an incarcerated ventra hernia
Plan:
Spoke again with patient's daughter, the power of attorney law clerk, at bedside. She had a long discussion with her family and is still opting to have no surgery. She plans on making the patient comfortable once the rest of the family arrives. NG tube
will remain in place so he does not vomit. Okay for sips and chips. Discussed with nursing.
Subjective Data
Subjective Data
Date of Service: May 04, 2024
Patient is unable to verbalize. He has an NGT in place. He just recieved pain medication.
Objective Data
-
Vital Signs
Temp Pulse Resp BP Pulse Ox
100.1 F 160 27 99/61 91
05/04/24 11:00 05/04/24 11:45 05/04/24 11:45 05/04/24 11:00 05/04/24 11:00
Intake & Output
05/03/24 05/04/24 05/05/24
06:59 06:59 06:59
Intake Total 2145 / 2340 1035 / 1035
Output Total 1550 / 1550 500 / 500
Balance 595 / 790 535 / 535
Intake:
IV fluids (Total) 2145 / 2340 975 / 975
Erick 270 / 315 225 / 225
Nss 1,000 ml @ 125 mls/hr IV . 1125 / 1125
Q8H HARSHAD Rx#:[id number]
Sterile Water For Injection 750 / 900 750 / 750
1000 ml 1,000 ml @ 150 mls/hr
IV .Q7H40M HARSHAD with Sodium
Bicarbonate 150 Meq Rx#:
[id number]
Amount instilled into GI Tube ( 60 / 60
Total)
Stoddard Sump 60 / 60
Output:
Gastrointestinal tube output ( 1550 / 1550 500 / 500
Total)
Stoddard Sump 1550 / 1550 500 / 500
Other:
Number of approximated SMALL 1
amounts of urine
Lab Results
05/04/24 04:07
05/04/24 04:07
Physical Exam
-
General: No Acute Distress and Other (awake, non-verbal)
Abdomen: Soft, Distended (mild) and Other (erythema over abdomen)
Skin: Warm and Dry
--- NOTE | 2024-05-04 12:46 | PTCARENOTE ---
family present. subsurface augmentee operator in earlier to visit. questions answered. mildly interactive, inconsistently. rest of assessment unchanged. incont, turned, cleaned, skin care.
--- NOTE | 2024-05-04 14:32 | CM ---
CM following re: discharge planning.
Reviewed pt's chart, met with pt. pt's spouse and daughter at bedside.
Pt is an 83 year old male, admitted with primary dx of SBO, Ventral / Incisional Hernia.
Per daughter, pt and his spouse live in the same room at [facility], have been living at [facility] for 2 years and they have 7 supportive children. pt requires total care. Pt's spouse stated after talking with a Dr family decided comfort care.
D/C plan: comfort care.
CM is available for emotional support.
--- NOTE | 2024-05-04 14:46 | PTCARENOTE ---
1345 pt staring, less responsive, eyes open unblinking, family aware of the change, another family member en route. 1425 AUTOMOTIVE UPHOLSTERER in room, prayers in progress, progressive bradypnea to apnea. HR initially AF to 170, sudden 50s then slow progression
to PEA asystole at 1441. family bedside, support given. Dr. Delong coming shortly to pronounce.
--- NOTE | 2024-05-04 14:59 | W.PN.DEATH ---
Pronouncement of
-
Called to see patient to pronounce.
No spontaneous heart tones or respirations noted.
Patient not responsive to verbal stimuli.
Patient is pronounced .
Time of : 14:50
Date of : 05/04/24
Cause of : Sepsis, small bowel obstruction, acute kidney injury, metabolic acidosis
Family Notified: Yes
--- NOTE | 2024-05-04 15:33 | PTCARENOTE ---
post mortem care, [facility] notified. Support to family.
--- NOTE | 2024-05-04 15:43 | CHAP ---
Emotional and spiritual support provided to Madhu and family. Prayers offered from [employer], commending Madhu to God, and asking peace for all. Prayer blanket given. [facility] was contacted for Sacrament of the Sick - no response from them in
the ensuing hours.
--- NOTE | 2024-05-04 16:42 | PTCARENOTE ---
can reconditioner arrived, family with body, sacrament of sick completed. incont, cleaned, [place] [facility] [place]
== END 2024-05-04 14:50 | disposition expired | DRG 871 ==
LOC: ICU 22:27
PROVIDERS: Nurse Practitioner Family; ADMITTING PHYSICIAN Hospitalist; ATTENDING PHYSICIAN Hospitalist; CONSULT PHYSICIAN Internal Medicine; CONSULT PHYSICIAN Surgery; EMERGENCY PHYSICIAN Student in an Organized Health Care Education/Training Program; FAMILY PHYSICIAN Student in an Organized Health Care Education/Training Program
PROC: 5A19054 Respiratory Ventilation, Single, Nonmechanical (ICD-10-PCS; 2024-05-03)
DX: A41.9 Sepsis, unspecified organism (principal); R65.21 Severe sepsis with septic shock; E87.1 Hypo-osmolality and hyponatremia; E87.20 Acidosis, unspecified; F03.918 Unspecified dementia, unspecified severity, with other behavioral disturbance; G61.0 Guillain-Barre syndrome; N17.9 Acute kidney failure, unspecified; K43.6 Other and unspecified ventral hernia with obstruction, without gangrene; J90 Pleural effusion, not elsewhere classified; D63.8 Anemia in other chronic diseases classified elsewhere; I50.9 Heart failure, unspecified; N18.30 Chronic kidney disease, stage 3 unspecified; E83.51 Hypocalcemia; Z51.5 Encounter for palliative care; Z66 Do not resuscitate; E86.9 Volume depletion, unspecified; E87.5 Hyperkalemia; G47.33 Obstructive sleep apnea (adult) (pediatric); I48.91 Unspecified atrial fibrillation; K80.20 Calculus of gallbladder without cholecystitis without obstruction; R06.02 Shortness of breath; Z79.01 Long term (current) use of anticoagulants; Z79.899 Other long term (current) drug therapy; Z87.19 Personal history of other diseases of the digestive system; Z86.718 Personal history of other venous thrombosis and embolism; Z85.528 Personal history of other malignant neoplasm of kidney; Z90.5 Acquired absence of kidney; Z87.891 Personal history of nicotine dependence; Z88.0 Allergy status to penicillin; Z88.1 Allergy status to other antibiotic agents
CPT/HCPCS: 43752; 71045; 74018; 74176; 80048; 80053; 82805; 83605; 83690; 83735; 84100; 84484; 85025; 85027; 85610; 85730; 87040; 87070; 93005; 96360; 99291